=== PATIENT | female | born 1995 | race Caucasian/White ===

== ENCOUNTER 2020-09-06 20:18 | Emergency (ER) | payer OTHER ==
[~2020-09-06] VITALS: Ht 162.6 cm; Wt 60.9 kg
[2020-09-06 20:34] VITALS: BP 132/77
== END 2020-09-06 22:30 | disposition left against medical advice (07) ==
LOC: EMS 20:21
DX: R05 Cough (principal); Z53.21 Procedure and treatment not carried out due to patient leaving prior to being seen by health care provider